=== PATIENT | female | born 1980 | race African-American/Black ===

== ENCOUNTER 2021-11-25 20:56 | Emergency (ER) | payer OTHER ==
[2021-11-25 21:02] VITALS: BMI 50.1
[2021-11-25 22:48] LABS: BASO % 0.6 % (0-2.0); EOS % 1.4 % (0-4.5); HEMATOCRIT 35.9 % (32.4-45.2); HEMOGLOBIN 11.7 GM/dL (10.7-15.3); LYMPH % 50.3 % (8-40); MCH 27.3 pg (25.7-33.7); MCHC 32.6 g/dl (32.0-36.0); MEAN CELL VOLUME 83.8 fl (80-96); MEAN PLT VOLUME 8.1 fl (7.5-11.1); MONO % 5.2 % (3.8-10.2); NEUT % 42.5 % (42.8-82.8); PLATELET COUNT 263 10^3/uL (134-434); RBC 4.29 M/mm3 (3.60-5.2); RDW 14.7 % (11.6-15.6)
[2021-11-25 23:00] LABS: ALBUMIN 3.8 g/dl (3.4-5.0); BLOOD UREA NITROGEN 9.5 mg/dL (7-18); CALCIUM 9.1 mg/dL (8.5-10.1)
[2021-11-25 23:03] LABS: CREATININE 0.9 mg/dL (0.55-1.3)
[2021-11-25 23:05] LABS: BILIRUBIN,TOTAL 0.3 mg/dL (0.2-1); TOT PROT 6.9 g/dl (6.4-8.2)
[2021-11-26 00:28] VITALS: BP 149/81; PULSE 90; TEMP 98.5
== END 2021-11-26 01:32 | disposition home or self-care (01) ==
LOC: JER 20:56
DX: R00.2 Palpitations (principal)
CPT/HCPCS: 36415; 71046-TC-FY; 80053; 83735; 84443; 84484; 84703; 85025; 93005; 93010; 99285-25

== ENCOUNTER 2022-05-11 14:35 | Emergency (ER) | payer OTHER ==
[2022-05-11 14:41] VITALS: RESP 18; TEMP 97; BMI 52.4
[2022-05-11 17:50] LABS: EOS % 0.9 % (0-4.5); HEMATOCRIT 36.1 % (32.4-45.2); HEMOGLOBIN 11.5 GM/dL (10.7-15.3); LYMPH % 44.2 % (8-40); MCH 26.6 pg (25.7-33.7); MCHC 31.8 g/dl (32.0-36.0); MEAN CELL VOLUME 83.8 fl (80-96); MEAN PLT VOLUME 9.5 fl (7.5-11.1); MONO % 7.9 % (3.8-10.2); PLATELET COUNT 308 10^3/uL (134-434); RBC 4.31 M/mm3 (3.60-5.2); RDW 14.9 % (11.6-15.6); WHITE BLOOD COUNT 8.5 K/mm3 (4.0-10.0)
[2022-05-11 18:01] VITALS: PULSE 95
[2022-05-11 18:05] VITALS: BP 144/83
[2022-05-11 18:09] LABS: CHLORIDE 107 mmol/L (98-107); SODIUM 137 mmol/L (136-145)
[2022-05-11 18:11] LABS: CALCIUM 8.7 mg/dL (8.5-10.1)
[2022-05-11 18:12] LABS: ALBUMIN 3.3 g/dl (3.4-5.0); BLOOD UREA NITROGEN 7.9 mg/dL (7-18); CO2 24 mmol/L (21-32); GLUCOSE,RANDOM 59 mg/dL (74-106)
[2022-05-11 18:15] LABS: BILIRUBIN,TOTAL 0.5 mg/dL (0.2-1); CREATININE 0.8 mg/dL (0.55-1.3); SGOT/AST 81 U/L (15-37); TOT PROT 7.3 g/dl (6.4-8.2)
[2022-05-11 18:17] LABS: ALK PHOS 101 U/L (45-117)
[2022-05-11 18:19] LABS: ANION GAP 6 MMOL/L (8-16); N-TERMINAL BNP 21.5 pg/ml (5-125); SGPT/ALT 35 U/L (13-61)
== END 2022-05-11 20:56 | disposition home or self-care (01) ==
LOC: JER 14:35
DX: R60.0 Localized edema (principal); M25.561 Pain in right knee
CPT/HCPCS: 73560-TC-LT-FY; 73560-TC-RT-FY; 80053; 83880; 84132; 85025; 93005; 93010; 93971-TC; 99285-25